=== PATIENT | female | born 1980 | race Caucasian/White ===

== ENCOUNTER → 2016-11-10 | Outpatient (CLI) | payer OTHER | LOC: FIMAGING 07:22 | PROVIDERS: ATTEND Obstetrics & Gynecology | DX: O09.512 Supervision of elderly primigravida, second trimester (principal); O26.872 Cervical shortening, second trimester; Z3A.19 19 weeks gestation of pregnancy ==

== ENCOUNTER 2016-11-13 14:56 | Emergency (ER) | payer OTHER ==
[2016-11-13 15:03] VITALS: RESP 16; O2SAT 98
--- NOTE | 2016-11-13 15:46 | EDPHY ---
H & P Time Seen by Provider: 11/13/16 15:34 HPI/ROS: CHIEF COMPLAINT: Abdominal pain with . HISTORY OF PRESENT ILLNESS: The patient is a 36-year-old female, 20 weeks , who presents with abdominal pain. The patient saw her inside [employer] 3 days ago. She had an US that showed shortened cervix, otherwise normal. Patient states she has been constipated throughout her . She takes Dulcocet everyday but has not found relief. Today the patient developed abdominal pain that felt similar to constipation at onset. However, around 2pm the pain worsened and she developed tightness in her abdomen, worse on the right side. She became concerned the pain was unrelated to constipation. After urinating while in the ED, the patient states her abdominal pain improved and it feels more like constipation pain again. The patient takes Progesterone suppositories as well as pre-mary vitamins with iron. She denies fever, nausea, or vomiting. REVIEW OF SYSTEMS: A comprehensive 10 point review of systems is otherwise negative aside from elements mentioned in the history of present illness. Past Medical/Surgical History: Denies. . Social History: . at bedside. Smoking Status: Never smoked Physical Exam: General Appearance: Alert, pleasant Eyes: Pupils equal and round, no conjunctival pallor or injection ENT, Mouth: Mucous membranes moist Neck: Normal inspection Respiratory: Lungs are clear to auscultation Cardiovascular: Regular rate and rhythm Gastrointestinal: Gravid, uterus up to umbilicus, right lower abdominal tenderness Neurological: A&O, nonfocal, normal gait Skin: Warm and dry, no rash Extremities: Nontender, no pedal edema Psychiatric: Mood and affect normal Constitutional: Initial Vital Signs Temperature (C) 36.8 C 11/13/16 15:02 Heart Rate 67 11/13/16 15:02 Respiratory Rate 16 11/13/16 15:02 Blood Pressure 135/63 H 11/13/16 15:02 O2 Sat (%) 98 11/13/16 15:02 O2 Delivery Mode Room Air Allergies/Adverse Reactions: doxycycline Allergy (Verified 11/13/16 15:02) Home Medications: Medication Instructions Recorded 11/13/16 Progesterone 11/13/16 Medical Decision Making - Diagnostics Imaging Results: Imaging Impressions Obstetrics Ultrasound 11/13/16 15:47 Impression: 1. Living thorne . 2. Stable shortened cervix. Findings discussed with NICOLE BOWER 11/13/2016 at 17:10. Abdomen Ultrasound 11/13/16 15:48 Impression: Nonvisualization of the appendix with no secondary evidence of appendicitis. Findings discussed with NICOLE BOWER 11/13/2016 at 1710. Imaging: Discussed imaging studies w/ call center trainer Radiologist ED Course/Re-evaluation: Patient is 20-weeks presenting with abdominal pain that she states feels like constipation. Patient takes Dulcolax daily but has not found relief. On exam patient has right sided tenderness. Plan for ultrasound and urine dip. Urine is dip negative for protein and blood pressure is normal. No evidence preeclampsia. 1700: Patient received an enema in the ED. She was able to have a bowel movement and the pain has resolved. Abdomen is soft and nontender. US is negative per Dr. Stockton. Patient is safe for discharge home. Strict return precautions given. Differential Diagnosis: Differential diagnosis includes though it is not limited to pre term labor, preeclampsia, appendicitis, cholecystitis, diverticulitis, pyelonephritis, bowel perforation, small bowel obstruction. - Data Points Laboratory Results: Laboratory Results 11/13/16 15:17 11/13/16 15:17 11/13/16 11/13/16 15:17 15:17 WBC 10.33 10^3/uL H 10^3/uL (3.80-9.50) RBC 4.32 10^6/uL 10^6/uL (4.18-5.33) Hgb 13.3 g/dL g/dL (12.6-16.3) Hct 37.5 % L % (38.0-47.0) MCV 86.8 fL fL (81.5-99.8) MCH 30.8 pg pg (27.9-34.1) MCHC 35.5 g/dL g/dL (32.4-36.7) RDW 12.4 % % (11.5-15.2) Plt Count 205 10^3/uL 10^3/uL (150-400) MPV 10.5 fL fL (8.7-11.7) Neut % (Auto) 76.5 % H % (39.3-74.2) Lymph % (Auto) 17.0 % % (15.0-45.0) [place] % (Auto) 4.0 % L % (4.5-13.0) Eos % (Auto) 1.7 % % (0.6-7.6) Baso % (Auto) 0.3 % % (0.3-1.7) Nucleat RBC Rel Count 0.0 % % (0.0-0.2) Absolute Neuts (auto) 7.90 10^3/uL H 10^3/uL (1.70-6.50) Absolute Lymphs (auto) 1.76 10^3/uL 10^3/uL (1.00-3.00) Absolute Monos (auto) 0.41 10^3/uL 10^3/uL (0.30-0.80) Absolute Eos (auto) 0.18 10^3/uL 10^3/uL (0.03-0.40) Absolute Basos (auto) 0.03 10^3/uL 10^3/uL (0.02-0.10) Absolute Nucleated RBC 0.00 10^3/uL 10^3/uL (0-0.01) Immature Gran % 0.5 % % (0.0-1.1) Immature Gran # 0.05 10^3/uL 10^3/uL (0.00-0.10) Sodium 139 mEq/L mEq/L (134-144) Potassium 3.8 mEq/L mEq/L (3.5-5.2) Chloride 109 mEq/L mEq/L (97-110) Carbon Dioxide 17 mEq/l L mEq/l (22-31) Anion Gap 13 mEq/L mEq/L (8-16) BUN 6 mg/dL L mg/dL (7-23) Creatinine 0.4 mg/dL L mg/dL (0.6-1.0) Estimated GFR > 60 Glucose 118 mg/dL H mg/dL (70-100) Calcium 10.1 mg/dL mg/dL (8.5-10.4) Medications Given: Discontinued Medications Magnesium Citrate (Magnesium Citrate) 300 ml PO EDNOW ONE Stop: 11/13/16 17:04 Last Admin: 11/13/16 17:13 Dose: 1 btl Departure - Departure Disposition: Home, Routine, Self-Care Clinical Impression: Constipation Qualifiers: Constipation type: other constipation type Qualified Code(s): K59.09 - Other constipation Condition: Good Instructions: Constipation (ED), High Fiber Diet (ED) Additional Instructions: Drink the magnesium citrate as directed to help with the constipation. I recommend stopping the iron supplements for the next few days. Followup with your [facility] next week as needed. Return to the Emergency Department if you develop abdominal pain, fever, vaginal discharge, or other concerns. Referrals: NONE *PRIMARY CARE P,. [Primary Care Provider] - As per Instructions Report Scribed for: Nicole Bower Report Scribed by: Cristel Lopez Date of Report: 11/13/16 Time of Report: 15:46 Physician Review and Approval Statement: 11/13/16 15:46 Portions of this note were transcribed by a director [employer] medical [employer]. I personally performed the history, physical exam, and medical decision-making; and confirmed the accuracy of the information in the transcribed note.
[2016-11-13 15:58] LABS: % IMMATURE GRANULYOCYTES 0.5 % (0.0-1.1); ABSOLUTE IMMATURE GRANULOCYTES 0.05 10^3/uL (0.00-0.10); ADD DIFF? NO; ADD MORPH? NO; ADD SCAN? NO; ATYPICAL LYMPHOCYTE FLAG 0 (0-99); FRAGMENT RBC FLAG 0 (0-99); HEMATOCRIT 37.5 % (38.0-47.0); HEMOGLOBIN 13.3 g/dL (12.6-16.3); LEFT SHIFT FLG 0 (0-99); LIPEMIA HEMOLYSIS FLAG 90 (0-99); MEAN CELL HEMOGLOBIN 30.8 pg (27.9-34.1); MEAN CELL HEMOGLOBIN CONCENTR. 35.5 g/dL (32.4-36.7); MEAN CELL VOLUME 86.8 fL (81.5-99.8); MEAN PLATELET VOLUME 10.5 fL (8.7-11.7); PLATELET CLUMPS FLAG 0 (0-99); PLATELET COUNT 205 10^3/uL (150-400); RED BLOOD CELL COUNT 4.32 10^6/uL (4.18-5.33); RED CELL DISTRIBUTION WIDTH 12.4 % (11.5-15.2)
[2016-11-13 16:04] LABS: ANION GAP 13 mEq/L (8-16); CALCIUM 10.1 mg/dL (8.5-10.4); CARBON DIOXIDE 17 mEq/l (22-31); CHLORIDE 109 mEq/L (97-110); CREATININE 0.4 mg/dL (0.6-1.0); GLOMERULAR FILTRATION RATE > 60; GLUCOSE 118 mg/dL (70-100); POTASSIUM 3.8 mEq/L (3.5-5.2); SODIUM 139 mEq/L (134-144)
[2016-11-13] MEDS ORDERED: MAGNESIUM CITRATE 300 ML BOTTLE PO ONE (17:03)
[2016-11-13 17:20] VITALS: BP 126/50; PULSE 65; TEMP 96.8
== END 2016-11-13 17:23 | disposition home or self-care (01) ==
DX: O99.612 Diseases of the digestive system complicating pregnancy, second trimester (principal); K59.09 Other constipation; Z3A.20 20 weeks gestation of pregnancy

== ENCOUNTER → 2016-11-17 | Outpatient (CLI) | payer OTHER | LOC: FIMAGING 13:13 | PROVIDERS: ATTEND Obstetrics & Gynecology | DX: O09.512 Supervision of elderly primigravida, second trimester (principal); O26.872 Cervical shortening, second trimester; Z3A.20 20 weeks gestation of pregnancy ==

== ENCOUNTER → 2016-11-24 | Outpatient (CLI) | payer OTHER | LOC: FIMAGING 13:01 | PROVIDERS: ATTEND Obstetrics & Gynecology | DX: O09.522 Supervision of elderly multigravida, second trimester (principal); O26.872 Cervical shortening, second trimester; Z3A.21 21 weeks gestation of pregnancy ==

== ENCOUNTER → 2016-12-01 | Outpatient (CLI) | payer OTHER | LOC: FIMAGING 12:09 | PROVIDERS: ATTEND Obstetrics & Gynecology | DX: O34.32 Maternal care for cervical incompetence, second trimester (principal); Z3A.22 22 weeks gestation of pregnancy ==

== ENCOUNTER → 2016-12-08 | Outpatient (CLI) | payer OTHER | LOC: FIMAGING 11:47 | PROVIDERS: ATTEND Obstetrics & Gynecology | DX: O09.522 Supervision of elderly multigravida, second trimester (principal); Z3A.23 23 weeks gestation of pregnancy ==

== ENCOUNTER → 2017-01-24 | Outpatient (CLI) | payer OTHER | LOC: FIMAGING 14:27 | PROVIDERS: ATTEND Obstetrics & Gynecology | DX: O09.513 Supervision of elderly primigravida, third trimester (principal); R03.0 Elevated blood-pressure reading, without diagnosis of hypertension; Z3A.30 30 weeks gestation of pregnancy ==

== ENCOUNTER → 2017-03-20 | Outpatient (CLI) | payer OTHER | LOC: FIMAGING 12:51 | PROVIDERS: ATTEND Obstetrics & Gynecology | DX: O36.5930 Maternal care for other known or suspected poor fetal growth, third trimester, not applicable or unspecified (principal); O09.513 Supervision of elderly primigravida, third trimester; Z3A.38 38 weeks gestation of pregnancy ==